=== PATIENT | female | born 1975 | race Caucasian/White ===

== ENCOUNTER 2017-04-20 15:20 | Emergency (ER) | payer MEDICAID ==
[~2017-04-20] VITALS: Ht 149.9 cm; Wt 57.6 kg
[2017-04-20 15:44] VITALS: BP 147/96
--- NOTE | 2017-04-20 16:18 | NUR ---
Patient to bed 01.
--- NOTE | 2017-04-20 16:20 | NUR ---
PT PRESENTS TO ER FOR EVALUATION OF RIGHT SIDED FACIAL DROOP. PT STATES 5 DAYS AGO THE RIGHT SIDE OF HER TONGUE BEGAN TINGLING, AND IT PROGRESSIVELY GOT WORSE, SPREADING TO THE RIGHT SIDE OF HER FACE. PT DENIES ANY MEDICAL HX. DENIES N/V/D; SKIN IS PINK/WARM/DRY; AAOX4 WITH EVEN AND STEADY GAIT; LUNGS CLEAR BL; HR EVEN AND REGULAR; PT DENIES ANY FEVER, CP, SOB, OR COUGH AT THIS TIME; PATIENT STATES PAIN OF 9/10 AT THIS TIME; VSS; PATIENT POSITIONED FOR COMFORT; HOB ELEVATED; BEDRAILS UP X2; BED DOWN. ER MD MADE AWARE OF PT STATUS.
[2017-04-20] MEDS ORDERED: methylPREDNISolone SS 125 MG in WATER STERILE 2 ML IM ONE (16:25)
[2017-04-20 17:30] VITALS: BP 103/69
--- NOTE | 2017-04-20 17:30 | NUR ---
Patient discharged with v/s stable. Written and verbal after care instructions given and explained. Patient alert, oriented and verbalized understanding of instructions. Ambulatory with steady gait. All questions addressed prior to discharge. ID band removed. Patient advised to follow up with PMD. Rx of ACYCLOVIR, PREDNISONE given. Patient educated on indication of medication including possible reaction and side effects. Opportunity to ask questions provided and answered.
--- NOTE | 2017-04-20 17:30 | NUR ---
Note undone in EDM - 04/20/17 at 1732 by RM PT PRESENTS TO ER FOR EVALUATION OF RIGHT SIDED FACIAL DROOP. PT STATES 5 DAYS AGO THE RIGHT SIDE OF HER TONGUE BEGAN TINGLING, AND IT PROGRESSIVELY GOT WORSE, SPREADING TO THE RIGHT SIDE OF HER FACE. PT DENIES ANY MEDICAL HX. DENIES N/V/D; SKIN IS PINK/WARM/DRY; AAOX4 WITH EVEN AND STEADY GAIT; LUNGS CLEAR BL; HR EVEN AND REGULAR; PT DENIES ANY FEVER, CP, SOB, OR COUGH AT THIS TIME; PATIENT STATES PAIN OF 9/10 AT THIS TIME; VSS; PATIENT POSITIONED FOR COMFORT; HOB ELEVATED; BEDRAILS UP X2; BED DOWN. ER MD MADE AWARE OF PT STATUS.
== END 2017-04-20 17:30 | disposition home or self-care (01) ==
LOC: MED 15:20
DX: G51.0 Bell's palsy (principal); R03.0 Elevated blood-pressure reading, without diagnosis of hypertension
CPT/HCPCS: 96372; 99283; J2930